=== PATIENT | male | born 1950 | race Caucasian/White ===

== ENCOUNTER → 2016-10-08 | Outpatient (CLI) | payer OTHER ==
[2015-07-14 14:45] VITALS: BP 161/90
--- NOTE | 2016-10-12 15:10 | MRI ---
History: Chronic left shoulder pain Technique: Multiplanar, multi sequence MR imaging of the left shoulder was performed without contras t. Comparison:NONE Findings: Postsurgical changes compatible with 's rotator cuff repair. There is extensive susceptibility artif act along the anterior superior aspect of the shoulder. There is a recurrent full-thickness tear of the supraspinatus and infra spinatus tendons, with approximately 3.6 cm of tendon retraction, nearly to the glenoid. Teres minor tendon appears intact. Evaluation of the subscapularis tendon is limited by motion artif act on the axial PD fat sat images however the tendon appears grossly intact. There is severe fatty atrophy of supraspinatus and infra spinatus. There is a small glenohumeral joint effusion with synovitis. There is moderate glenohumeral osteoart hrosis. Long head biceps tendon is seen within the distal aspect of the bicipital groove, however ca nnot be followed proximally along the intra-articular segment, likely secondary to bicipital tenotom y or tenodesis. Biceps anchor is not visualized. There is degenerative fraying/blunting of the super ior and posterior labrum. Anterior inferior labrum appears grossly intact. Postsurgical changes sugg est prior subacromial decompressive surgery. There is an irregularity along the posterolateral super ior aspect of the humeral head which appears slightly flattened without subjacent marrow edema. This is suggestive of a chronic Hill-Sachs deformity. Correlate with patient's history. Impression: 1. Status post rotator cuff repair, with a complete full-thickness recurrent tear supraspinatus and infra spinatus, with retraction approximate 3.6 cm nearly to the glenoid. There is fatty atrophy of supraspinatus and infra spinatus. 2. Nonvisualization of the intra-articular long head biceps tendon, likely secondary to bicipital te notomy or tenodesis. Biceps anchor is not visualized. There is degenerative fraying/blunting of the superior and posterior labrum. Anterior inferior labrum appears grossly intact. 3. Flattening of the posterolateral superior aspect of the humeral head which is suggestive of a chr onic Hill-Sachs deformity. Correlate with patient's history for previous anterior glenohumeral dislo cation. 4. Small glenohumeral joint effusion with synovitis. 5. Moderate glenohumeral osteoarthrosis. 6. Other findings as above. Reported By:
== END ==
LOC: RAD 10:33
PROVIDERS: ATTEND Internal Medicine
DX: M25.512 Pain in left shoulder (principal); Z98.890 Other specified postprocedural states
CPT/HCPCS: 73221

== ENCOUNTER 2020-10-21 12:36 | Inpatient (IN) ==
[2020-10-21 12:53] VITALS: BMI 37.1
--- NOTE | 2020-10-21 13:19 | DR.N/VMALE ---
HPI Time Seen Time Seen by Provider: 10/21/20 13:17 Primary Care Physician Primary Care Physician: Yovanny Keller Chief Complaint:: Pt c/o n/v/d since Tuesday. COVID-19 Coronavirus risk:travel/contact w/high risk person: No Has patient experienced Coronavirus symptoms: No Source History Provided: Patient Mode of Arrival Mode of Arrival: Wheelchair Timing Onset of Chief Complaint: 10/19/20 PMH PMH Past Medical History: Yes Past Medical History: Diabetes and Hypertension Past Surgical History: Yes Surgical History: Angioplasty/Stents and Ortho Surgery Family History History of Family Medical Conditions: Yes Family Medical History: Diabetes Mellitus, Coronary Artery Disease and Hypertension Social History Does patient currently use any type of tobacco product: No Have you used tobacco products in the last 12 months: No Type of Tobacco Use: None Does any household member use tobacco: No Alcohol Use: None Do you use any recreational Drugs:: No Lives With: Family Lives Where: Home Travel Risk Coronavirus risk:travel/contact w/high risk person: No Has patient experienced Coronavirus symptoms: No Infectious screening In the last 2 months have you had wt loss of >10#?: NO Have you had fever, night sweats or hemotysis?: No Have you traveled outside the country in the last 6 months?: No Isolation: Standard ROS Review of Systems Constitutional: No Symptoms Reported Eyes: No Symptoms Reported ENTM: No Symptoms Reported Respiratoy: No Symptoms Reported Cardiovascular: No Symptoms Reported Gastrointestinal/Abdominal: No Symptoms Reported Genitourinary: No Symptoms Reported Neurological: No Symptoms Reported Musculoskeletal: No Symptoms Reported Integumentary: No Symptoms Reported Hematologic/Lymphatic: No Symptoms Reported Endocrine: No Symptoms Reported Psychiatric: No Symptoms Reported All Other Systems: Reviewed and Negative PE Vital Signs Vitals: Temperature 98.9 F Pulse Rate [Left Radial] 98 Pulse Rate 96 Respiratory Rate 18 Blood Pressure [Left Arm] 123/59 Blood Pressure [Right Arm] 102/58 Blood Pressure 119/59 O2 Sat by Pulse Oximetry 94 General Limitations: No Limitations General Appearance: Alert and In No Apparent Distress Head Head Exam: Normal Inspection Eyes Eye exam: Normal Appearance ENT ENT Exam: Normal Exam Neck Neck Exam: Normal Inspection Chest Chest Inspection: Normal Inspection Respiratory Respiratory Exam: Normal Lung Sounds Bilat Respiratory Exam: Bilateral: Clear to Auscultation Cardiovascular Cardiovascular Exam: Regular Rate and Normal Rhythm Abdominal Exam Abdominal Exam: Normal Inspection, Normal Bowel Sounds and Soft Rectal Rectal Exam: Deferred Exam: Male: Deferred Extremities Extremities Exam: Normal Inspection Back Back Exam: Normal Inspection Neurologic Neurological Exam: Alert and Oriented X3 Psychiatric Psychiatric Exam: Normal Affect and Normal Mood Skin Skin Exam: Warm, Dry, Intact and Normal Color ROR Labs Reviewed Result Diagrams: 10/25/20 05:53 10/25/20 05:53 Laboratory: 10/21/20 17:16 Stool Stool Culture - Final Salmonella Species 10/21/20 17:16 Stool - Final WBC 5.1 X10^3/uL (3.6-10.0) 10/21/20 13:26 RBC 4.71 X10^6/uL (4.7-6.0) 10/21/20 13:26 Hgb 13.4 g/dL (13.5-18.0) L 10/21/20 13:26 Hct 40.9 % (42.0-54.0) L 10/21/20 13:26 MCV 86.9 fL (80.0-100.0) 10/21/20 13:26 MCH 28.6 pg (27.0-34.0) 10/21/20 13:26 MCHC 32.9 g/dL (33.0-35.0) L 10/21/20 13:26 RDW 15.2 % (11.6-16.5) 10/21/20 13:26 Plt Count 177 X10^3/uL (150.0-450.0) 10/21/20 13:26 MPV 8.1 fL (7.4-11.0) 10/21/20 13:26 Neut % (Auto) 72.3 % (42.0-75.0) 10/21/20 13:26 Lymph % (Auto) 19.1 % (21.0-51.0) L 10/21/20 13:26 [place] % (Auto) 8.4 % (0.0-13.0) 10/21/20 13:26 Eos % (Auto) 0.0 % (0.9-2.9) L 10/21/20 13:26 Baso % (Auto) 0.2 % (0.2-1.0) 10/21/20 13:26 Neut # (Auto) 3.7 x10^3/uL (2.2-4.8) 10/21/20 13:26 Lymph # (Auto) 1.0 X10^3/uL (1.3-2.9) L 10/21/20 13:26 [place] # (Auto) 0.4 x10^3/uL (0.3-0.8) 10/21/20 13:26 Eos # (Auto) 0.0 x10^3/uL (0.0-0.2) 10/21/20 13:26 Baso # (Auto) 0.0 X10^3/uL (0.0-0.1) 10/21/20 13:26 Absolute Nucleated RBC 0.1 /100WBC 10/21/20 13:26 Sodium 134 mmol/L (136-145) L 10/21/20 13:26 Corrected Sodium 136 mmol/L (136-145) 10/21/20 13:26 Potassium 3.4 mmol/L (3.5-5.1) L 10/21/20 13:26 Chloride 95 mmol/L (98-107) L 10/21/20 13:26 Carbon Dioxide 24.5 mmol/L (21-32) 10/21/20 13:26 BUN 66 mg/dL (7-18) H 10/21/20 13:26 Creatinine 5.95 mg/dL (0.70-1.30) H 10/21/20 13:26 Est GFR (MDRD) Af Amer 12 (>60) L 10/21/20 13:26 Est GFR (MDRD) Non-Af 10 (>60) L 10/21/20 13:26 Glucose 177 mg/dL (65-99) H 10/21/20 13:26 Calcium 8.8 mg/dL (8.5-10.1) 10/21/20 13:26 Corrected Calcium 9.4 mg/dL (8.5-10.1) 10/21/20 13:26 Total Bilirubin 1.20 mg/dL (0.2-1.0) H 10/21/20 13:26 AST 120 Units/L (15-37) H 10/21/20 13:26 ALT 70 Units/L (12-78) 10/21/20 13:26 Alkaline Phosphatase 48 Units/L (46-116) 10/21/20 13:26 Total Protein 8.0 g/dL (6.4-8.2) 10/21/20 13:26 Albumin 3.2 g/dL (3.4-5.0) L 10/21/20 13:26 Globulin 4.8 g/dL (2.5-4.5) H 10/21/20 13:26 Albumin/Globulin Ratio 0.7 Ratio (1.1-2.1) L 10/21/20 13:26 Amylase 49 Units/L (25-115) 10/21/20 13:26 Lipase 74 Units/L (73-393) 10/21/20 13:26 Specimen Type Random urine 10/21/20 17:21 Urine Color Dark yellow (YELLOW) 10/21/20 17: Urine Appearance Hazy (CLEAR) 10/21/20 17:21 Urine pH 5.0 (5.0 - 8.0) 10/21/20 17:21 Ur Specific [place] 1.025 (1.000-1.030) 10/21/20 17:21 Urine Protein 2+ (NEGATIVE) 10/21/20 17:21 Urine Glucose (UA) 1+ (NEGATIVE) 10/21/20 17:21 Urine Ketones 1+ (NEGATIVE) 10/21/20 17:21 Urine Occult Blood 4+ (NEGATIVE) 10/21/20 17:21 Urine Nitrite Negative (NEGATIVE) 10/21/20 17:21 Urine Bilirubin 1+ (NEGATIVE) 10/21/20 17:21 Urine Urobilinogen Normal (NORMAL) 10/21/20 17:21 Ur Leukocyte Esterase Negative (NEGATIVE) 10/21/20 17:21 Urine RBC 5-10 /HPF (0-3) A 10/21/20 17:21 Urine WBC 0-2 /HPF (0-5) 10/21/20 17:21 Ur Squamous Epith Cells Moderate /HPF (NEGATIVE) 10/21/20 17:21 Urine Bacteria 1+ /HPF (NEGATIVE) 10/21/20 17:21 Coarse Granular Casts Moderate /HPF (NEGATIVE) 10/21/20 17:21 Ur Culture Indicated? No/not indicated 10/21/20 17:21 Stool Description 200g green liquid 10/21/20 17:16 Stool Description 200g green liquid 10/21/20 17:16 Stl Occult Blood (IFOB) Positive (NEGATIVE) A 10/21/20 17:16 Stool for White Cells Positive (NEGATIVE) A 10/21/20 17:16 Stl C. diff Tox B Gene Negative (NEGATIVE) 10/21/20 17:16 Stl C. diff [id number] Presumptive negative (NEGATIVE) 10/21/20 17:16 Stool H. pylori Ag Positive (NEGATIVE) A 10/21/20 17:16 Cryptosporid parvum Ag Negative (NEGATIVE) 10/21/20 17:16 Giardia lamblia Ag Negative (NEGATIVE) 10/21/20 17:16 SARS CoV-2 RNA Rapid ZHENG Negative (NEGATIVE) 10/21/20 18:15 EKG [place]: Normal Rhythm: NSR Block: None Hypertrophy: None ST: Normal Opioid Opioid Risk Tool Age (Juan David box if 16-45): No History of Preadolescent Sexual Abuse: No Total: 0 Total Score Risk Category: Low Risk Copyright: [facility] predicting aberrant behaviors Diagnosis Discharge Problem: Acute dehydration, Acute renal insufficiency, H. pylori infection, Campylob acter gastroenteritis Abdominal pain Qualifiers: Abdominal location: generalized Qualified Code(s): R10.84 - Generalized abdominal pain Instructions Forms: Precautions for COVID19 Patient Portal Social Distancing
[2020-10-21] MEDS ORDERED: NS 1000 ML 1,000 ML IV ONE ×2 (13:24→16:37)
[2020-10-21 13:32] LABS: BASOPHILS % (AUTO) 0.2 % (0.2-1.0); HEMATOCRIT 40.9 % (42.0-54.0); HEMOGLOBIN 13.4 g/dL (13.5-18.0); LYMPHOCYTES % (AUTO) 19.1 % (21.0-51.0); MEAN CORPUSCULAR HEMOGLOBIN 28.6 pg (27.0-34.0); MEAN CORPUSCULAR HGB CONC 32.9 g/dL (33.0-35.0); MEAN CORPUSCULAR VOLUME 86.9 fL (80.0-100.0); MEAN PLATELET VOLUME 8.1 fL (7.4-11.0); MONOCYTES # (AUTO) 0.4 x10^3/uL (0.3-0.8); MONOCYTES % (AUTO) 8.4 % (0.0-13.0); NEUTROPHILS # (AUTO) 3.7 x10^3/uL (2.2-4.8); NEUTROPHILS % (AUTO) 72.3 % (42.0-75.0); PLATELET COUNT 177 X10^3/uL (150.0-450.0); RED BLOOD COUNT 4.71 X10^6/uL (4.7-6.0); RED CELL DISTRIBUTION WIDTH 15.2 % (11.6-16.5); WHITE BLOOD COUNT 5.1 X10^3/uL (3.6-10.0)
[2020-10-21] MEDS ORDERED: NS 1000 ML 1,000 ML ONE ×2 (13:32→16:40)
[2020-10-21 14:20] LABS: ALBUMIN 3.2 g/dL (3.4-5.0); CALCIUM 8.8 mg/dL (8.5-10.1); CARBON DIOXIDE 24.5 mmol/L (21-32); COR CA(FOR HYPOALB) 9.4 mg/dL (8.5-10.1); CREATININE 5.95 mg/dL (0.70-1.30)
[2020-10-21 17:28] LABS: BILIRUBIN,URINE 1+ (NEGATIVE); BLOOD/HEMOGLOBIN,URINE 4+ (NEGATIVE); GLUCOSE, URINE 1+ (NEGATIVE); KETONES,URINE 1+ (NEGATIVE); LEUKOCYTE ESTERASE ,URINE NEGATIVE (NEGATIVE); NITRITES,URINE NEGATIVE (NEGATIVE); PROTEIN,URINE 2+ (NEGATIVE); UROBILINOGEN,URINE NORMAL (NORMAL)
[2020-10-21 17:41] LABS: APPEARANCE,URINE HAZY (CLEAR); COLOR,URINE DARK YELLOW (YELLOW)
[2020-10-21 17:42] LABS: BACTERIA,URINE 1+ /HPF (NEGATIVE); COARSE GRANULAR CASTS,URINE MODERATE /HPF (NEGATIVE); SQUAMOUS EPITHELIAL CELL,UR MODERATE /HPF (NEGATIVE)
--- NOTE | 2020-10-21 17:56 | CT ---
ABDOMEN/PELVIS W/O CONHistory: c/o n/v/d since TuesdayTechnique: CT images of the abdomen and pelvis were obtained without IV or oral contrast. Reformatted images in the coronal and sagittal planes also generated for review. Automatic exposure was utilized.Comparison: NoneFindings: Lung bases are clear of acute infiltrates. Degenerative changes throughout the spine and pelvis noted.Within the limits of a noncontrast exam, the unenhanced liver is enlarged and diffusely steatotic without gross focal lesion. The gallbladder, spleen, pancreas, adrenals and kidneys are unremarkable. No urolithiasis or obstructive uropathy.Evaluation of the GI tract is limited without oral contrast. Accounting for this, there is liquid stool throughout the distal colon, which suggests nonspecific diarrheal illness. There is no small bowel obstruction or gross bowel inflammation. The appendix is normal. The abdominal aorta is mildly calcified without aneurysm. Urinary bladder is grossly unremarkable. Small fat containing left inguinal hernia noted. Prostate is calcified but not enlarged. There is no free air, free fluid or bulky lymphadenopathy.Impression:1. Liquid stool within the distal colon suggests nonspecific diarrheal illness.2. Otherwise, no additional significant abdominal pelvic abnormality to explain patient's symptoms, within the limitations of a noncontrast exam.3. Enlarged fatty liver and additional chronic/nonacute findings as above.Electronically signed by: TR WATKINS (October 21, 2020 17:54:40)
[2020-10-21 18:18] LABS: CRYPTOSPORIDIUM PARVUM ANTIGEN NEGATIVE (NEGATIVE); GIARDIA LAMBLIA ANTIGEN NEGATIVE (NEGATIVE)
[2020-10-21] MEDS ORDERED: ZITHROMAX INJ 500 MG VIAL IV ONE (22:00)
[2020-10-21] MEDS ORDERED: ZITHROMAX INJ 500 MG VIAL 500 MG in NS 250 ML IV 250 ML IV SCH (22:00)
[2020-10-21] MEDS ORDERED: NS 250 ML IV 250 ML IV ONE (22:01)
[2020-10-21] MEDS ORDERED: NS 100 ML IV 100 ML IV ONE (22:34)
[2020-10-21] MEDS ORDERED: PROTONIX INJ 40 MG VIAL ONE (22:34)
[2020-10-21] MEDS: PROTONIX INJ 40 MG VIAL 80 MG in NS 100 ML IV 80 ML IV SCH (22:47)
[2020-10-22] MEDS ORDERED: NS 1000 ML 1,000 ML ONE (02:56)
[2020-10-22] MEDS ORDERED: NS 100 ML IV 100 ML IV ONE (03:54)
[2020-10-22] MEDS ORDERED: PROTONIX INJ 40 MG VIAL ONE (03:54)
[2020-10-22] MEDS: PROTONIX INJ 40 MG VIAL 80 MG in NS 100 ML IV 80 ML IV SCH ×4 (03:58→14:30)
[2020-10-22] MEDS ORDERED: NS 1000 ML 1,000 ML IV SCH ×2 (04:00→04:42)
[2020-10-22] MEDS ORDERED: BENTYL I.M. INJ 10 MG IM ONE (05:25)
[2020-10-22] MEDS: BENTYL I.M. INJ 10 MG IM SCH ×3 (05:28→21:00)
[2020-10-22 06:28] LABS: BASOPHILS % (AUTO) 0.3 % (0.2-1.0); HEMATOCRIT 35.5 % (42.0-54.0); HEMOGLOBIN 11.8 g/dL (13.5-18.0); LYMPHOCYTES # (AUTO) 0.6 X10^3/uL (1.3-2.9); LYMPHOCYTES % (AUTO) 17.8 % (21.0-51.0); MEAN CORPUSCULAR HEMOGLOBIN 28.7 pg (27.0-34.0); MEAN CORPUSCULAR HGB CONC 33.1 g/dL (33.0-35.0); MEAN CORPUSCULAR VOLUME 86.5 fL (80.0-100.0); MEAN PLATELET VOLUME 8.5 fL (7.4-11.0); MONOCYTES # (AUTO) 0.3 x10^3/uL (0.3-0.8); MONOCYTES % (AUTO) 9.3 % (0.0-13.0); NEUTROPHILS # (AUTO) 2.5 x10^3/uL (2.2-4.8); NEUTROPHILS % (AUTO) 72.6 % (42.0-75.0); PLATELET COUNT 147 X10^3/uL (150.0-450.0); RED CELL DISTRIBUTION WIDTH 15.1 % (11.6-16.5); WHITE BLOOD COUNT 3.4 X10^3/uL (3.6-10.0)
[2020-10-22 06:38] LABS: ALBUMIN 2.6 g/dL (3.4-5.0); CALCIUM 8.2 mg/dL (8.5-10.1); CARBON DIOXIDE 25.1 mmol/L (21-32); COR CA(FOR HYPOALB) 9.3 mg/dL (8.5-10.1); CREATININE 4.72 mg/dL (0.70-1.30); TOTAL PROTEIN 6.9 g/dL (6.4-8.2)
[2020-10-22] MEDS ORDERED: CIPRO TAB 500 MG PO ONE (09:46)
[2020-10-22] MEDS: CIPRO TAB 500 MG PO SCH (09:48)
[2020-10-22] MEDS: NS 1000 ML 1,000 ML with SODIUM BICARBONATE 8.4% INJ ADULT 50 ML IV SCH ×4 (11:45→20:58)
[2020-10-22] MEDS: LOMOTIL PO SCH ×2 (11:57→20:58)
[2020-10-22] MEDS: PEPCID 20 MG IV PREMIX* 20 MG/50 ML BAG IV SCH (11:57)
--- NOTE | 2020-10-22 13:52 | DR.H&P ---
H&P - History & Physical for Day of: H&P Date: 10/21/20 - Chief Complaint Chief Complaint: NAUSEA, VOMITING, DIARRHEA - History of Present Illness History of Present Illness: IS A 70 YEAR OLD PATIENT OF OURS. HE PRESENTED TO THE ER WITH COMPLAINTS OF NAUSEA, VOMITING, AND DIARRHEA X 3 DAYS. HE ALSO ADMITS TO ABDOMINAL PAIN. PAIN IS DESCRIBED CRAMPING AND IS RATED A 8/10. HE REPORTS HAVING AT LEAST 15 EPISODES OF DIARRHEA IN THE PAST 24 HOURS. HIS PMH INCLUDES CAD, GERD, DIABETES II, CARDIAC STENTS, AND BILATERAL SHOULDER AND KNEE REPLACEMENT. ON ARRIVAL TO THE ER, VITALS WERE 99.6-96-20-95%-119/59. LABS WERE OBTAINED. ABNORMAL LAB VALUES INCLUDE THE FOLLOWING: HGB 13.4, HCT 40.9, SODIUM 134, POTASSIUM 3.4, CHLORIDE 95, BUN 66, CREATININE 5.95, GLUCOSE 177, TOTAL BILI 1.20, AST 120, ALBUMIN 3.2, GLOBULIN 4.8. STOOL STUDIES ARE POSITIVE FOR OCCULT BLOOD, WHITE CELL, CAMPYLOBACTER, AND H.PYLORI. URINALYSIS OBTAINED AND REVEALED: WBC 0-2, RBC 5-10, BACTERIA 1+, BILIRUBIN 1+, OCCULT BLOOD 4+, PROTEIN 2+. A STOOL CULTURE WAS SET UP. AN ABDOMEN/PELVIS CT WAS OBTAINED AND REVEALED: Lung bases are clear of acute infiltrates. Degenerative changes throughout the spine and pelvis noted. Within the limits of a noncontrast exam, the unenhanced liver is enlarged and diffusely steatotic without gross focal lesion. The gallbladder, spleen, pancreas, adrenals and kidneys are unremarkable. No urolithiasis or obstructive uropathy. Evaluation of the GI tract is limited without oral contrast. Accounting for this, there is liquid stool throughout the distal colon, which suggests nonspecific diarrheal illness. There is no small bowel obstruction or gross bowel inflammation. The appendix is normal. The abdominal aorta is mildly calcified without aneurysm. Urinary bladder is grossly unremarkable. Small fat containing left inguinal hernia noted. Prostate is calcified but not enlarged. There is no free air, free fluid or bulky lymphadenopathy. WHILE IN THE ER, PATIENT HAD MULTIPLE EPISODES OF DIARRHEA. A RECTAL TUBE WAS PLACED. HE WAS GIVEN A NORMAL SALINE BOLUS, ZITHROMAX 500MG IV X 1 DOSE. HE WAS ADMITTED TO THE HOSPITAL FOR FURTHER EVALUATION OF ACUTE RENAL FAILURE, CAMPYLOBACTER INFECTION, H-PYLORI, AND DEHYDRATION. HE WAS STARTED ON NORMAL SALINE WITH 1 AMP BICARB IN EACH LITER AT 150 ML/HR, CIPRO 500MG PO DAILY, PROTONIX DRIP AT 10 ML/HR, PEPCID 20MG IV Q48H, ZOFRAN 4MG IV Q6H PRN, DILAUDID 1MG IV Q6H PRN, BENTYL 10MG IM Q8H, AND LOMOTIL 1TABLET PO BID. WE CHOSE ORAL ANTIBIOTICS DUE TO STOMACH INFECTION AND CLOSER ABSORPTION. OTHERWISE, WE PLAN TO FOLLOW UP WITH AM LABS AND CONTINUE TO MONITOR. TIME SPENT ON CLINICAL ASSESSMENT, REVIEWING LABS AND IMAGING, DECISION MAKING, AND DOCUMENTATION GREATER THAN 75 MINUTES. - Past Medical History Past Medical History: Diabetes, GERD, Hypertension - Past Surgical History Surgical History: Angioplasty/Stents, Ortho Surgery - Family History Family Medical History: Diabetes Mellitus, Hypertension - Social History Does patient currently use any type of tobacco product: No Have you used tobacco products in the last 12 months: No Type of Tobacco Use: None Does any household member use tobacco: No Alcohol Use: None Drug Use: None - Medications Home Medications: Sulfa (Sulfonamide Antibiotics) [SULFA] Allergy (Verified 07/15/20 11:18) vancomycin Allergy (Verified 07/15/20 11:18) CONTINUE taking the following medications docusate sodium [Stool Softener] 100 mg PO PRN PRN 10/22/20 [History] eszopiclone 3 mg PO HS PRN 10/22/20 [History] ferrous sulfate 325 mg PO DAILY 10/22/20 [History] folic acid 1 mg PO BID 10/22/20 [History] gabapentin [Neurontin] 300 mg PO BID 10/22/20 [History] meclizine 25 mg PO BID PRN 10/22/20 [History] metoprolol succinate 25 mg PO DAILY 10/22/20 [History] montelukast [Singulair] 10 mg PO DAILY 10/22/20 [History] terazosin 2 mg PO HS 10/22/20 [History] - Review of Systems Constitutional: See HPI, Fever, Weakness, Malaise Eyes: No Symptoms Reported ENT: No Symptoms Reported Respiratory: No Symptoms Reported Cardiovascular: No Symptoms Reported Gastrointestinal: See HPI, Nausea, Vomiting, Abdominal Pain, Diarrhea Genitourinary: No Symptoms Reported Musculoskeletal: No Symptoms Reported Skin: No Symptoms Reported Neurological: Weakness - Physical Exam Vital Signs: Temperature 97.9 F Pulse Rate [Left Radial] 83 Pulse Rate 96 Respiratory Rate 18 Blood Pressure [Left Arm] 157/73 Blood Pressure [Right Arm] 102/58 Blood Pressure 119/59 O2 Sat by Pulse Oximetry 93 Oriented: Normal Eyes: Normal Ear: Normal Nose: Normal Throat: Normal Respiratory: Diminished Throughout Cardiovascular: Normal : Normal Auscultation: Bowel Sounds: Increased Palpation: Normal Tenderness: Diffuse, Moderate. negative: Rebound, Guarding, Rigidity Skin: Decreased Turgur Musculoskeletal: Normal Psychiatric: Normal Mood Description: Calm Affect: Normal Speech Pattern: Clear - Assessment/Plan (1) Acute renal failure Qualifiers: Acute renal failure type: unspecified Qualified Code(s): N17.9 - Acute kidney failure, unspecified Status: Acute Plan: NORMAL SALINE WITH 1 AMP BICARB IN EACH LITER AT 150 ML/HR, CIPRO 500MG PO DAILY, PROTONIX DRIP AT 10 ML/HR, PEPCID 20MG IV Q48H, ZOFRAN 4MG IV Q6H PRN, DILAUDID 1MG IV Q6H PRN, BENTYL 10MG IM Q8H, AND LOMOTIL 1TABLET PO BID. (2) Campylobacter gastroenteritis Status: Acute (3) H. pylori infection Status: Acute (4) Acute dehydration Status: Acute - Allergies Allergies/Adverse Reactions: Allergies Allergy/AdvReac Type Severity Reaction Status Date / Time Sulfa (Sulfonamide Allergy Verified 07/15/20 11:18 Antibiotics) [SULFA] vancomycin Allergy Verified 07/15/20 11:18
[2020-10-22] MEDS: ZOFRAN INJ 4 MG VIAL IVP PRN (14:30)
[2020-10-22] MEDS: PHENERGAN INJ 25 MG IM PRN (17:47)
[2020-10-22] MEDS: DILAUDID INJ IVP PRN (20:59)
[2020-10-23] MEDS: PROTONIX INJ 40 MG VIAL 80 MG in NS 100 ML IV 80 ML IV SCH ×3 (04:05→20:59)
[2020-10-23] MEDS: BENTYL I.M. INJ 10 MG IM SCH ×3 (04:06→20:57)
[2020-10-23] MEDS: NS 1000 ML 1,000 ML with SODIUM BICARBONATE 8.4% INJ ADULT 50 ML IV SCH ×6 (05:09→17:30)
[2020-10-23] MEDS: DILAUDID INJ IVP PRN ×3 (05:09→17:38)
[2020-10-23 06:29] LABS: BASOPHILS % (AUTO) 0.2 % (0.2-1.0); EOSINOPHILS % (AUTO) 0.2 % (0.9-2.9); HEMATOCRIT 35.3 % (42.0-54.0); LYMPHOCYTES # (AUTO) 0.6 X10^3/uL (1.3-2.9); LYMPHOCYTES % (AUTO) 21.4 % (21.0-51.0); MEAN CORPUSCULAR HEMOGLOBIN 29.2 pg (27.0-34.0); MEAN CORPUSCULAR VOLUME 85.6 fL (80.0-100.0); MEAN PLATELET VOLUME 8.4 fL (7.4-11.0); MONOCYTES # (AUTO) 0.3 x10^3/uL (0.3-0.8); MONOCYTES % (AUTO) 10.6 % (0.0-13.0); NEUTROPHILS # (AUTO) 1.8 x10^3/uL (2.2-4.8); NEUTROPHILS % (AUTO) 67.6 % (42.0-75.0); PLATELET COUNT 141 X10^3/uL (150.0-450.0); RED BLOOD COUNT 4.13 X10^6/uL (4.7-6.0); RED CELL DISTRIBUTION WIDTH 14.9 % (11.6-16.5); WHITE BLOOD COUNT 2.6 X10^3/uL (3.6-10.0)
[2020-10-23 06:32] LABS: ALBUMIN 2.2 g/dL (3.4-5.0); CALCIUM 8.2 mg/dL (8.5-10.1); CARBON DIOXIDE 26.6 mmol/L (21-32); COR CA(FOR HYPOALB) 9.6 mg/dL (8.5-10.1); CREATININE 2.68 mg/dL (0.70-1.30); TOTAL PROTEIN 6.3 g/dL (6.4-8.2)
[2020-10-23] MEDS: CIPRO TAB 500 MG PO SCH (09:44)
[2020-10-23] MEDS: LOMOTIL PO SCH ×2 (09:45→20:57)
[2020-10-23] MEDS: ZOFRAN INJ 4 MG VIAL IVP PRN ×2 (10:26→17:37)
[2020-10-23] MEDS ORDERED: K-DUR TAB 20 MEQ PO ONE (10:33)
[2020-10-23] MEDS: PHENERGAN INJ 25 MG IM PRN (15:14)
[2020-10-23] MEDS ORDERED: BENTYL I.M. INJ 10 MG IM ONE (20:43)
[2020-10-24] MEDS: NS 1000 ML 1,000 ML with SODIUM BICARBONATE 8.4% INJ ADULT 50 ML IV SCH ×6 (02:30→15:39)
[2020-10-24] MEDS ORDERED: BENTYL I.M. INJ 10 MG IM ONE (05:36)
[2020-10-24 05:58] LABS: BASOPHILS % (AUTO) 0.6 % (0.2-1.0); EOSINOPHILS # (AUTO) 0.1 x10^3/uL (0.0-0.2); HEMATOCRIT 33.5 % (42.0-54.0); HEMOGLOBIN 11.3 g/dL (13.5-18.0); LYMPHOCYTES # (AUTO) 0.6 X10^3/uL (1.3-2.9); LYMPHOCYTES % (AUTO) 27.3 % (21.0-51.0); MEAN CORPUSCULAR HEMOGLOBIN 28.6 pg (27.0-34.0); MEAN CORPUSCULAR HGB CONC 33.8 g/dL (33.0-35.0); MEAN CORPUSCULAR VOLUME 84.6 fL (80.0-100.0); MEAN PLATELET VOLUME 8.3 fL (7.4-11.0); MONOCYTES # (AUTO) 0.2 x10^3/uL (0.3-0.8); MONOCYTES % (AUTO) 10.3 % (0.0-13.0); NEUTROPHILS # (AUTO) 1.3 x10^3/uL (2.2-4.8); NEUTROPHILS % (AUTO) 58.8 % (42.0-75.0); PLATELET COUNT 152 X10^3/uL (150.0-450.0); RED BLOOD COUNT 3.96 X10^6/uL (4.7-6.0); RED CELL DISTRIBUTION WIDTH 14.9 % (11.6-16.5); WHITE BLOOD COUNT 2.3 X10^3/uL (3.6-10.0)
[2020-10-24] MEDS: BENTYL I.M. INJ 10 MG IM SCH ×3 (06:00→21:17)
[2020-10-24] MEDS: ZOFRAN INJ 4 MG VIAL IVP PRN ×3 (06:01→15:40)
[2020-10-24 06:10] LABS: ALBUMIN 2.2 g/dL (3.4-5.0); CALCIUM 8.4 mg/dL (8.5-10.1); CARBON DIOXIDE 28.5 mmol/L (21-32); COR CA(FOR HYPOALB) 9.8 mg/dL (8.5-10.1); CREATININE 2.05 mg/dL (0.70-1.30); MAGNESIUM 1.7 mg/dL (1.7-2.9); TOTAL PROTEIN 6.1 g/dL (6.4-8.2)
[2020-10-24 06:39] LABS: BAND NEUTROPHILS % 11 % (0-10); PLATELET MORPHOLOGY COMMENT NORMAL (NORMAL)
[2020-10-24] MEDS: CIPRO TAB 500 MG PO SCH (09:27)
[2020-10-24] MEDS ORDERED: KLOR-CON PO NR (11:45)
--- NOTE | 2020-10-24 11:45 | PCM.PROG ---
Progress Note - Progress Note for Day of Date of Exam: 10/23/20 - Subjective Subjective: IS BEING TREATED FOR ACUTE RENAL FAILURE, DEHYDRATION, CAMPYLOBACTER GASTROENTERITIS, AND H-PYLORI. TODAY, HE IS ALERT AND ORIENTED, LYING IN BED ON MORNING ROUNDS. HE CONTINUES WITH COMPLAINTS OF ABDOMINAL PAIN AND NAUSEA. HE DOES REPORT SLIGHT IMPROVEMENT IN SYMPTOMS SINCE ONE DAY PRIOR. ON EXAMINATION, HEART IS REGULAR IN RATE AND RHYTHM. BILATERAL LUNGS ARE NOTED WITH DIMINISHED LUNG SOUNDS THROUGHOUT. ABDOMEN IS ROUND, SOFT, AND NOTED WITH MILD, DIFFUSE TENDERNESS. HYPERACTIVE BOWEL SOUNDS NOTED. THERE IS A RECTAL TUBE IN PLACE. HIS VITALS THIS MORNING ARE: 98.2-88-20-97%-153/84. LABS WERE OBTAINED. ABNORMAL LAB VALUES INCLUDE THE FOLLOWING: WBC 2.6, RBC 4.13, HGB 12.0, HCT 35.3, PLT COUNT 114, POTASSIUM 3.0, BUN 50, CREATININE 2.68, GLUCOSE 170, CALCIUM 8.2, AST 92, ALK PHOS 43, BNP 744, TOTAL PROTEIN 6.3, ALBUMIN 2.2. STOOL CULTURE IS PENDING. HE IS CURRENTLY RECEIVING NORMAL SALINE WITH 1 AMP BICARB IN EACH LITER AT 150 ML/HR, CIPRO 500MG PO DAILY, PROTONIX DRIP AT 10 ML/HR, PEPCID 20MG IV Q48H, ZOFRAN 4MG IV Q6H PRN, DILAUDID 1MG IV Q6H PRN, BENTYL 10MG IM Q8H, AND LOMOTIL 1TABLET PO BID. HIS HOME MEDICATIONS WERE RESUMED. TODAY, WE WILL DECREASE IV FLUIDS TO 75 ML/HR AND ADMINISTER K-DUR 20MG PO X 1 DOSE. OTHERWISE, WE WILL CONTINUE WITH CURRENT PLAN OF CARE TODAY. WE PLAN TO FOLLOW UP WITH AM LABS AND CONTINUE TO MONITOR. - Past Medical Family Social History Past Med/Fam/Surg Hx: No changes since H&P Allergies: Allergies Sulfa (Sulfonamide Antibiotics) [SULFA] Allergy (Verified 07/15/20 11:18) vancomycin Allergy (Verified 07/15/20 11:18) - Review of Systems ROS: No change since H&P - Vital Signs and I&O's Vital Signs: Temperature 98.2 F Pulse Rate [Left Radial] 88 Pulse Rate 96 Respiratory Rate 20 Blood Pressure [Left Arm] 153/84 Blood Pressure [Right Arm] 102/58 Blood Pressure 119/59 O2 Sat by Pulse Oximetry 97 Intake and Output: Intake & Output 10/21/20 10/22/20 10/23/20 10/24/20 11:59 11:59 11:59 11:59 Intake Total 2416 / 2416 580 / 580 6548 / 6548 Output Total 600 / 600 1100 / 1100 1250 / 1250 Balance 1816 / 1816 -520 / -520 5298 / 5298 - Physical Exam Oriented: Normal Eyes: Normal Ear: Normal Nose: Normal Throat: Normal Respiratory: Generalized, Diminished Cardiovascular: Normal : Normal Auscultation: Bowel Sounds: Increased Palpation: Normal Tenderness: Diffuse, Moderate. negative: Rebound, Guarding, Rigidity Skin: Decreased Turgur Musculoskeletal: Normal Psychiatric: Normal Mood Description: Calm Affect: Normal Speech Pattern: Clear, Appropriate - Laboratory and Diagnostics Result Diagrams: 10/24/20 05:15 10/24/20 05:15 Labs: 10/21/20 17:16 Stool Stool Culture - Final Salmonella Species 10/21/20 17:16 Stool - Final Laboratory WBC 2.3 X10^3/uL (3.6-10.0) L 10/24/20 05:15 RBC 3.96 X10^6/uL (4.7-6.0) L 10/24/20 05:15 Hgb 11.3 g/dL (13.5-18.0) L 10/24/20 05:15 Hct 33.5 % (42.0-54.0) L 10/24/20 05:15 MCV 84.6 fL (80.0-100.0) 10/24/20 05:15 MCH 28.6 pg (27.0-34.0) 10/24/20 05:15 MCHC 33.8 g/dL (33.0-35.0) 10/24/20 05:15 RDW 14.9 % (11.6-16.5) 10/24/20 05:15 Plt Count 152 X10^3/uL (150.0-450.0) 10/24/20 05:15 Plt Count Comment Adequate (ADEQUATE) 10/24/20 05:15 MPV 8.3 fL (7.4-11.0) 10/24/20 05:15 Neut % (Auto) 58.8 % (42.0-75.0) 10/24/20 05:15 Lymph % (Auto) 27.3 % (21.0-51.0) 10/24/20 05:15 [place] % (Auto) 10.3 % (0.0-13.0) 10/24/20 05:15 Eos % (Auto) 3.0 % (0.9-2.9) H 10/24/20 05:15 Baso % (Auto) 0.6 % (0.2-1.0) 10/24/20 05:15 Neut # (Auto) 1.3 x10^3/uL (2.2-4.8) L 10/24/20 05:15 Lymph # (Auto) 0.6 X10^3/uL (1.3-2.9) L 10/24/20 05:15 [place] # (Auto) 0.2 x10^3/uL (0.3-0.8) L 10/24/20 05:15 Eos # (Auto) 0.1 x10^3/uL (0.0-0.2) 10/24/20 05:15 Baso # (Auto) 0.0 X10^3/uL (0.0-0.1) 10/24/20 05:15 Absolute Nucleated RBC 0.1 /100WBC 10/24/20 05:15 Total Counted 100 10/24/20 05:15 Neutrophils % (Manual) 53 % (39-76) 10/24/20 05:15 Band Neutrophils % 11 % (0-10) H 10/24/20 05:15 Lymphocytes % (Manual) 20 % (13-43) 10/24/20 05:15 Monocytes % (Manual) 10 % (4-9) H 10/24/20 05:15 Atypical Lymphocytes 5 10/24/20 05:15 Plt Morphology Comment Normal (NORMAL) 10/24/20 05:15 RBC Morphology Normal (NORMAL) 10/24/20 05:15 Sodium 144 mmol/L (136-145) 10/24/20 05:15 Corrected Sodium 145 mmol/L (136-145) 10/24/20 05:15 Potassium 2.8 mmol/L (3.5-5.1) L* 10/24/20 05:15 Chloride 108 mmol/L (98-107) H 10/24/20 05:15 Carbon Dioxide 28.5 mmol/L (21-32) 10/24/20 05:15 BUN 36 mg/dL (7-18) H 10/24/20 05:15 Creatinine 2.05 mg/dL (0.70-1.30) H 10/24/20 05:15 Est GFR (MDRD) Af Amer 42 (>60) L 10/24/20 05:15 Est GFR (MDRD) Non-Af 34 (>60) L 10/24/20 05:15 Glucose 131 mg/dL (65-99) H 10/24/20 05:15 Calcium 8.4 mg/dL (8.5-10.1) L 10/24/20 05:15 Corrected Calcium 9.8 mg/dL (8.5-10.1) 10/24/20 05:15 Magnesium 1.7 mg/dL (1.7-2.9) 10/24/20 05:15 Total Bilirubin 0.70 mg/dL (0.2-1.0) 10/24/20 05:15 AST 71 Units/L (15-37) H 10/24/20 05:15 ALT 59 Units/L (12-78) 10/24/20 05:15 Alkaline Phosphatase 47 Units/L (46-116) 10/24/20 05:15 B-Natriuretic Peptide 826 pg/mL (0-79) H* 10/24/20 05:15 Total Protein 6.1 g/dL (6.4-8.2) L 10/24/20 05:15 Albumin 2.2 g/dL (3.4-5.0) L 10/24/20 05:15 Globulin 3.9 g/dL (2.5-4.5) 10/24/20 05:15 Albumin/Globulin Ratio 0.6 Ratio (1.1-2.1) L 10/24/20 05:15 Amylase 44 Units/L (25-115) 10/22/20 05:15 Lipase 77 Units/L (73-393) 10/22/20 05:15 Specimen Type Random urine 10/21/20 17:21 Urine Color Dark yellow (YELLOW) 10/21/20 17:21 Urine Appearance Hazy (CLEAR) 10/21/20 17:21 Urine pH 5.0 (5.0 - 8.0) 10/21/20 17:21 Ur Specific [place] 1.025 (1.000-1.030) 10/21/20 17:21 Urine Protein 2+ (NEGATIVE) 10/21/20 17:21 Urine Glucose (UA) 1+ (NEGATIVE) 10/21/20 17:21 Urine Ketones 1+ (NEGATIVE) 10/21/20 17:21 Urine Occult Blood 4+ (NEGATIVE) 10/21/20 17:21 Urine Nitrite Negative (NEGATIVE) 10/21/20 17:21 Urine Bilirubin 1+ (NEGATIVE) 10/21/20 17:21 Urine Urobilinogen Normal (NORMAL) 10/21/20 17:21 Ur Leukocyte Esterase Negative (NEGATIVE) 10/21/20 17:21 Urine RBC 5-10 /HPF (0-3) A 10/21/20 17:21 Urine WBC 0-2 /HPF (0-5) 10/21/20 17:21 Ur Squamous Epith Cells Moderate /HPF (NEGATIVE) 10/21/20 17:21 Urine Bacteria 1+ /HPF (NEGATIVE) 10/21/20 17:21 Coarse Granular Casts Moderate /HPF (NEGATIVE) 10/21/20 17:21 Ur Culture Indicated? No/not indicated 10/21/20 17:21 Stool Description 200g green liquid 10/21/20 17:16 Stool Description 200g green liquid 10/21/20 17:16 Stl Occult Blood (IFOB) Positive (NEGATIVE) A 10/21/20 17:16 Stool for White Cells Positive (NEGATIVE) A 10/21/20 17:16 Stl C. diff Tox B Gene Negative (NEGATIVE) 10/21/20 17:16 Stl C. diff [id number] Presumptive negative (NEGATIVE) 10/21/20 17:16 Stool H. pylori Ag Positive (NEGATIVE) A 10/21/20 17:16 Cryptosporid parvum Ag Negative (NEGATIVE) 10/21/20 17:16 Giardia lamblia Ag Negative (NEGATIVE) 10/21/20 17:16 SARS CoV-2 RNA Rapid ZHENG Negative (NEGATIVE) 10/21/20 18:15 - Plan (1) Acute renal failure Status: Acute Qualifiers: Acute renal failure type: unspecified Qualified Code(s): N17.9 - Acute kidney failure, unspecified Plan: NORMAL SALINE WITH 1 AMP BICARB IN EACH LITER AT 75 ML/HR, CIPRO 500MG PO DAILY, PROTONIX DRIP AT 10 ML/HR, PEPCID 20MG IV Q48H, ZOFRAN 4MG IV Q6H PRN, DILAUDID 1MG IV Q6H PRN, BENTYL 10MG IM Q8H, AND LOMOTIL 1TABLET PO BID. (2) Campylobacter gastroenteritis Status: Acute (3) H. pylori infection Status: Acute (4) Acute dehydration Status: Acute
[2020-10-24] MEDS: PEPCID 20 MG IV PREMIX* 20 MG/50 ML BAG IV SCH (12:30)
[2020-10-24] MEDS: PROTONIX INJ 40 MG VIAL 80 MG in NS 100 ML IV 80 ML IV SCH ×2 (15:28→18:36)
[2020-10-24] MEDS ORDERED: KLOR-CON ONE (15:31)
[2020-10-25] MEDS: NS 1000 ML 1,000 ML with SODIUM BICARBONATE 8.4% INJ ADULT 50 ML IV SCH ×4 (00:25→11:47)
[2020-10-25] MEDS: DILAUDID INJ IVP PRN ×4 (00:30→22:20)
[2020-10-25] MEDS: BENTYL I.M. INJ 10 MG IM SCH ×3 (04:33→20:45)
[2020-10-25] MEDS: PROTONIX INJ 40 MG VIAL 80 MG in NS 100 ML IV 80 ML IV SCH ×4 (04:38→23:13)
[2020-10-25 06:36] LABS: BASOPHILS % (AUTO) 0.5 % (0.2-1.0); EOSINOPHILS # (AUTO) 0.1 x10^3/uL (0.0-0.2); EOSINOPHILS % (AUTO) 3.4 % (0.9-2.9); HEMATOCRIT 32.3 % (42.0-54.0); HEMOGLOBIN 10.9 g/dL (13.5-18.0); LYMPHOCYTES # (AUTO) 1.2 X10^3/uL (1.3-2.9); LYMPHOCYTES % (AUTO) 32.2 % (21.0-51.0); MEAN CORPUSCULAR HEMOGLOBIN 28.7 pg (27.0-34.0); MEAN CORPUSCULAR HGB CONC 33.8 g/dL (33.0-35.0); MEAN CORPUSCULAR VOLUME 84.9 fL (80.0-100.0); MEAN PLATELET VOLUME 7.7 fL (7.4-11.0); MONOCYTES # (AUTO) 0.3 x10^3/uL (0.3-0.8); NEUTROPHILS % (AUTO) 54.9 % (42.0-75.0); PLATELET COUNT 158 X10^3/uL (150.0-450.0); RED BLOOD COUNT 3.81 X10^6/uL (4.7-6.0); RED CELL DISTRIBUTION WIDTH 14.9 % (11.6-16.5); WHITE BLOOD COUNT 3.7 X10^3/uL (3.6-10.0)
[2020-10-25 06:45] LABS: ALBUMIN 2.1 g/dL (3.4-5.0); CALCIUM 8.6 mg/dL (8.5-10.1); CARBON DIOXIDE 31.1 mmol/L (21-32); COR CA(FOR HYPOALB) 10.1 mg/dL (8.5-10.1); CREATININE 1.71 mg/dL (0.70-1.30); MAGNESIUM 1.6 mg/dL (1.7-2.9); TOTAL PROTEIN 5.8 g/dL (6.4-8.2)
[2020-10-25] MEDS: CIPRO TAB 500 MG PO SCH (10:04)
[2020-10-25] MEDS ORDERED: LR 1000 ML IV 1,000 ML IV ONE (10:14)
[2020-10-25] MEDS: MAGNESIUM SULFATE 1 GRAM/100 mL PREMIX 4 G/400 ML BAG IV SCH ×4 (14:02→17:52)
[2020-10-25] MEDS ORDERED: NS 1/2 1000 ML IV 1,000 ML IV ONE (14:54)
[2020-10-25] MEDS ORDERED: SODIUM BICARBONATE 8.4% INJ ADULT ONE (14:54)
[2020-10-25] MEDS: NS 1/2 1000 ML IV 1,000 ML with SODIUM BICARBONATE 8.4% INJ ADULT 50 ML IV SCH ×4 (14:58→22:19)
[2020-10-25] MEDS: K-DUR TAB 20 MEQ PO SCH (20:40)
[2020-10-26] MEDS: ZOFRAN INJ 4 MG VIAL IVP PRN ×2 (00:26→08:56)
[2020-10-26] MEDS ORDERED: KLOR-CON PO PRN (02:35)
[2020-10-26] MEDS ORDERED: MICRO K EXTEN CAP 10 MEQ PO PRN (02:35)
[2020-10-26] MEDS: K-RIDER 10 MEQ/NS 100 ML 10 MEQ/100 ML BAG IV PRN ×3 (03:18→06:07)
[2020-10-26] MEDS ORDERED: SODIUM BICARBONATE 8.4% INJ ADULT ONE (03:33)
[2020-10-26] MEDS ORDERED: NS 1/2 1000 ML IV 1,000 ML IV ONE (03:33)
[2020-10-26] MEDS: BENTYL I.M. INJ 10 MG IM SCH ×3 (05:06→20:45)
[2020-10-26] MEDS: NS 1/2 1000 ML IV 1,000 ML with SODIUM BICARBONATE 8.4% INJ ADULT 50 ML IV SCH ×2 (05:06)
[2020-10-26 06:38] LABS: BASOPHILS % (AUTO) 0.5 % (0.2-1.0); EOSINOPHILS # (AUTO) 0.1 x10^3/uL (0.0-0.2); EOSINOPHILS % (AUTO) 2.6 % (0.9-2.9); HEMATOCRIT 32.6 % (42.0-54.0); LYMPHOCYTES # (AUTO) 1.3 X10^3/uL (1.3-2.9); LYMPHOCYTES % (AUTO) 28.6 % (21.0-51.0); MEAN CORPUSCULAR HEMOGLOBIN 28.6 pg (27.0-34.0); MEAN CORPUSCULAR HGB CONC 33.8 g/dL (33.0-35.0); MEAN CORPUSCULAR VOLUME 84.5 fL (80.0-100.0); MEAN PLATELET VOLUME 7.7 fL (7.4-11.0); MONOCYTES # (AUTO) 0.3 x10^3/uL (0.3-0.8); MONOCYTES % (AUTO) 6.4 % (0.0-13.0); NEUTROPHILS # (AUTO) 2.8 x10^3/uL (2.2-4.8); NEUTROPHILS % (AUTO) 61.9 % (42.0-75.0); PLATELET COUNT 171 X10^3/uL (150.0-450.0); RED BLOOD COUNT 3.86 X10^6/uL (4.7-6.0); RED CELL DISTRIBUTION WIDTH 15.1 % (11.6-16.5); WHITE BLOOD COUNT 4.5 X10^3/uL (3.6-10.0)
[2020-10-26 06:52] LABS: ALBUMIN 2.3 g/dL (3.4-5.0); CALCIUM 8.5 mg/dL (8.5-10.1); COR CA(FOR HYPOALB) 9.9 mg/dL (8.5-10.1); CREATININE 1.5 mg/dL (0.70-1.30); MAGNESIUM 1.9 mg/dL (1.7-2.9); TOTAL PROTEIN 5.9 g/dL (6.4-8.2)
[2020-10-26] MEDS: PROTONIX INJ 40 MG VIAL 80 MG in NS 100 ML IV 80 ML IV SCH ×4 (07:27→18:08)
[2020-10-26] MEDS: DILAUDID INJ IVP PRN (07:27)
[2020-10-26] MEDS: POTASSIUM CHLORIDE LIQ 20 MEQ UDC PO PRN ×2 (07:41→11:01)
[2020-10-26] MEDS: CIPRO TAB 500 MG PO SCH (08:42)
[2020-10-26] MEDS: K-DUR TAB 20 MEQ PO SCH ×4 (08:42→21:08)
[2020-10-26] MEDS: MAGNESIUM SULFATE 1 GRAM/100 mL PREMIX 1 GM/100 ML BAG IV PRN (11:01)
[2020-10-26] MEDS: MAGNESIUM SULFATE 1 GRAM/100 mL PREMIX 4 G/400 ML BAG IV SCH ×4 (11:02→14:38)
[2020-10-26] MEDS: COREG TAB 25 MG PO SCH ×2 (11:02→20:44)
[2020-10-26] MEDS: VSL#3 PO SCH (11:03)
[2020-10-26] MEDS: PEPCID 20 MG IV PREMIX* 20 MG/50 ML BAG IV SCH (11:54)
[2020-10-26] MEDS: NORCO 7.5/325 MG TAB PO PRN ×2 (13:29→19:51)
[2020-10-26] MEDS: LR 1000 ML IV 1,000 ML IV SCH ×2 (14:38→20:48)
[2020-10-27] MEDS: LR 1000 ML IV 1,000 ML IV SCH (04:05)
[2020-10-27] MEDS: PROTONIX INJ 40 MG VIAL 80 MG in NS 100 ML IV 80 ML IV SCH (04:05)
[2020-10-27] MEDS: BENTYL I.M. INJ 10 MG IM SCH (05:50)
[2020-10-27] MEDS: K-DUR TAB 20 MEQ PO SCH (05:51)
[2020-10-27] MEDS: NORCO 7.5/325 MG TAB PO PRN (05:51)
[2020-10-27 06:07] LABS: BASOPHILS % (AUTO) 0.3 % (0.2-1.0); EOSINOPHILS # (AUTO) 0.1 x10^3/uL (0.0-0.2); EOSINOPHILS % (AUTO) 1.8 % (0.9-2.9); HEMATOCRIT 32.7 % (42.0-54.0); HEMOGLOBIN 10.7 g/dL (13.5-18.0); LYMPHOCYTES # (AUTO) 1.6 X10^3/uL (1.3-2.9); LYMPHOCYTES % (AUTO) 25.4 % (21.0-51.0); MEAN CORPUSCULAR HEMOGLOBIN 28.3 pg (27.0-34.0); MEAN CORPUSCULAR HGB CONC 32.9 g/dL (33.0-35.0); MEAN CORPUSCULAR VOLUME 86.1 fL (80.0-100.0); MEAN PLATELET VOLUME 7.8 fL (7.4-11.0); MONOCYTES # (AUTO) 0.3 x10^3/uL (0.3-0.8); MONOCYTES % (AUTO) 4.6 % (0.0-13.0); NEUTROPHILS # (AUTO) 4.2 x10^3/uL (2.2-4.8); NEUTROPHILS % (AUTO) 67.9 % (42.0-75.0); PLATELET COUNT 199 X10^3/uL (150.0-450.0); RED BLOOD COUNT 3.79 X10^6/uL (4.7-6.0); RED CELL DISTRIBUTION WIDTH 14.9 % (11.6-16.5); WHITE BLOOD COUNT 6.1 X10^3/uL (3.6-10.0)
[2020-10-27 06:19] LABS: ALBUMIN 2.3 g/dL (3.4-5.0); CALCIUM 8.9 mg/dL (8.5-10.1); CARBON DIOXIDE 28.7 mmol/L (21-32); COR CA(FOR HYPOALB) 10.3 mg/dL (8.5-10.1); CREATININE 1.49 mg/dL (0.70-1.30); MAGNESIUM 1.8 mg/dL (1.7-2.9); TOTAL PROTEIN 5.9 g/dL (6.4-8.2)
[2020-10-27] MEDS: COREG TAB 25 MG PO SCH (08:21)
[2020-10-27] MEDS: VSL#3 PO SCH (08:21)
[2020-10-27] MEDS: MAGNESIUM SULFATE 1 GRAM/100 mL PREMIX 1 GM/100 ML BAG IV PRN (08:22)
[2020-10-27 11:22] VITALS: BP 149/67
--- NOTE | 2020-10-27 11:30 | PCM.PROG ---
Progress Note - Progress Note for Day of Date of Exam: 10/24/20 - Subjective Subjective: IS BEING TREATED FOR ACUTE RENAL FAILURE, DEHYDRATION, CAMPYLOBACTER GASTROENTERITIS, AND H-PYLORI. TODAY, HE IS ALERT AND ORIENTED, LYING IN BED ON MORNING ROUNDS. HE CONTINUES WITH COMPLAINTS OF ABDOMINAL PAIN AND NAUSEA. HE DOES REPORT SLIGHT IMPROVEMENT IN SYMPTOMS SINCE ONE DAY PRIOR. ON EXAMINATION, HEART IS REGULAR IN RATE AND RHYTHM. BILATERAL LUNGS ARE NOTED WITH DIMINISHED LUNG SOUNDS THROUGHOUT. ABDOMEN IS ROUND, SOFT, AND NOTED WITH MILD, DIFFUSE TENDERNESS. HYPERACTIVE BOWEL SOUNDS NOTED. THERE IS A RECTAL TUBE IN PLACE. HIS VITALS THIS MORNING ARE: 98.1-77-18-96%-159/74. LABS WERE OBTAINED. ABNORMAL LAB VALUES INCLUDE THE FOLLOWING: WBC 2.3, RBC 3.96, HGB 11.3, HCT 33.5, POTASSIUM 2.8, CHLORIDE 108, BUN 36, CREATININE 2.05, GLUCOSE 131, CALCIUM 8.4, AST 71, BNP 826, TOTAL PROTEIN 6.1, ALBUMIN 2.2. STOOL CULTURE IS POSITIVE FOR [place]. HE IS CURRENTLY RECEIVING NORMAL SALINE WITH 1 AMP BICARB IN EACH LITER AT 75 ML/HR, CIPRO 500MG PO DAILY, PROTONIX DRIP AT 10 ML/HR, PEPCID 20MG IV Q48H, ZOFRAN 4MG IV Q6H PRN, DILAUDID 1MG IV Q6H PRN, BENTYL 10MG IM Q8H, AND LOMOTIL 1TABLET PO BID. HIS HOME MEDICATIONS WERE RESUMED. TODAY, WE WILL ADMINISTER K-DUR 20MG PO X 1 DOSE. OTHERWISE, WE WILL CONTINUE WITH CURRENT PLAN OF CARE TODAY. WE PLAN TO FOLLOW UP WITH AM LABS AND CONTINUE TO MONITOR. TIME SPENT ON CLINICAL ASSESSMENT, REVIEWING LABS AND IMAGING, DECISION MAKING, AND DOCUMENTATION GREATER THAN 45 MINUTES. - Past Medical Family Social History Past Med/Fam/Surg Hx: No changes since H&P Allergies: Allergies Sulfa (Sulfonamide Antibiotics) [SULFA] Allergy (Verified 07/15/20 11:18) vancomycin Allergy (Verified 07/15/20 11:18) - Review of Systems ROS: No change since H&P - Vital Signs and I&O's Vital Signs: Temperature 97.2 F Pulse Rate [Left Radial] 78 Pulse Rate 96 Respiratory Rate 20 Blood Pressure [Left Arm] 149/67 Blood Pressure [Right Arm] 102/58 Blood Pressure 119/59 O2 Sat by Pulse Oximetry 98 Intake and Output: Intake & Output 10/24/20 10/25/20 10/26/20 10/27/20 11:59 11:59 11:59 11:59 Intake Total 6548 / 6548 3258 / 3258 4807 / 4807 3514 / 3514 Output Total 1250 / 1250 1300 / 1300 1300 / 1300 1125 / 1125 Balance 5298 / 5298 1957 / 1957 3507 / 3507 2389 / 2389 - Physical Exam Oriented: Normal Eyes: Normal Ear: Normal Nose: Normal Throat: Normal Respiratory: Generalized, Diminished Cardiovascular: Normal : Normal Auscultation: Bowel Sounds: Increased Palpation: Normal Tenderness: Diffuse, Moderate. negative: Rebound, Guarding, Rigidity Skin: Decreased Turgur Musculoskeletal: Normal Psychiatric: Normal Mood Description: Calm Affect: Normal Speech Pattern: Clear, Appropriate - Laboratory and Diagnostics Result Diagrams: 10/27/20 05:14 10/27/20 05:14 Labs: 10/21/20 17:16 Stool Stool Culture - Final Salmonella Species 10/21/20 17:16 Stool - Final Laboratory WBC 6.1 X10^3/uL (3.6-10.0) 10/27/20 05:14 RBC 3.79 X10^6/uL (4.7-6.0) L 10/27/20 05:14 Hgb 10.7 g/dL (13.5-18.0) L 10/27/20 05:14 Hct 32.7 % (42.0-54.0) L 10/27/20 05:14 MCV 86.1 fL (80.0-100.0) 10/27/20 05:14 MCH 28.3 pg (27.0-34.0) 10/27/20 05:14 MCHC 32.9 g/dL (33.0-35.0) L 10/27/20 05:14 RDW 14.9 % (11.6-16.5) 10/27/20 05:14 Plt Count 199 X10^3/uL (150.0-450.0) 10/27/20 05:14 Plt Count Comment Adequate (ADEQUATE) 10/24/20 05:15 MPV 7.8 fL (7.4-11.0) 10/27/20 05:14 Neut % (Auto) 67.9 % (42.0-75.0) 10/27/20 05:14 Lymph % (Auto) 25.4 % (21.0-51.0) 10/27/20 05:14 [place] % (Auto) 4.6 % (0.0-13.0) 10/27/20 05:14 Eos % (Auto) 1.8 % (0.9-2.9) 10/27/20 05:14 Baso % (Auto) 0.3 % (0.2-1.0) 10/27/20 05:14 Neut # (Auto) 4.2 x10^3/uL (2.2-4.8) 10/27/20 05:14 Lymph # (Auto) 1.6 X10^3/uL (1.3-2.9) 10/27/20 05:14 [place] # (Auto) 0.3 x10^3/uL (0.3-0.8) 10/27/20 05:14 Eos # (Auto) 0.1 x10^3/uL (0.0-0.2) 10/27/20 05:14 Baso # (Auto) 0.0 X10^3/uL (0.0-0.1) 10/27/20 05:14 Absolute Nucleated RBC 0.0 /100WBC 10/27/20 05:14 Total Counted 100 10/24/20 05:15 Neutrophils % (Manual) 53 % (39-76) 10/24/20 05:15 Band Neutrophils % 11 % (0-10) H 10/24/20 05:15 Lymphocytes % (Manual) 20 % (13-43) 10/24/20 05:15 Monocytes % (Manual) 10 % (4-9) H 10/24/20 05:15 Atypical Lymphocytes 5 10/24/20 05:15 Plt Morphology Comment Normal (NORMAL) 10/24/20 05:15 RBC Morphology Normal (NORMAL) 10/24/20 05:15 Sodium 146 mmol/L (136-145) H 10/27/20 05:14 Corrected Sodium 147 mmol/L (136-145) H 10/27/20 05:14 Potassium 3.4 mmol/L (3.5-5.1) L 10/27/20 05:14 Chloride 110 mmol/L (98-107) H 10/27/20 05:14 Carbon Dioxide 28.7 mmol/L (21-32) 10/27/20 05:14 BUN 17 mg/dL (7-18) 10/27/20 05:14 Creatinine 1.49 mg/dL (0.70-1.30) H 10/27/20 05:14 Est GFR (MDRD) Af Amer 60 (>60) 10/27/20 05:14 Est GFR (MDRD) Non-Af 50 (>60) L 10/27/20 05:14 Glucose 141 mg/dL (65-99) H 10/27/20 05:14 Calcium 8.9 mg/dL (8.5-10.1) 10/27/20 05:14 Corrected Calcium 10.3 mg/dL (8.5-10.1) H 10/27/20 05:14 Magnesium 1.8 mg/dL (1.7-2.9) 10/27/20 05:14 Total Bilirubin 0.80 mg/dL (0.2-1.0) 10/27/20 05:14 AST 37 Units/L (15-37) 10/27/20 05:14 ALT 47 Units/L (12-78) 10/27/20 05:14 Alkaline Phosphatase 70 Units/L (46-116) 10/27/20 05:14 B-Natriuretic Peptide 653 pg/mL (0-79) H* 10/27/20 05:14 Total Protein 5.9 g/dL (6.4-8.2) L 10/27/20 05:14 Albumin 2.3 g/dL (3.4-5.0) L 10/27/20 05:14 Globulin 3.6 g/dL (2.5-4.5) 10/27/20 05:14 Albumin/Globulin Ratio 0.6 Ratio (1.1-2.1) L 10/27/20 05:14 Amylase 44 Units/L (25-115) 10/22/20 05:15 Lipase 77 Units/L (73-393) 10/22/20 05:15 Specimen Type Random urine 10/21/20 17:21 Urine Color Dark yellow (YELLOW) 10/21/20 17:21 Urine Appearance Hazy (CLEAR) 10/21/20 17:21 Urine pH 5.0 (5.0 - 8.0) 10/21/20 17:21 Ur Specific [place] 1.025 (1.000-1.030) 10/21/20 17:21 Urine Protein 2+ (NEGATIVE) 10/21/20 17:21 Urine Glucose (UA) 1+ (NEGATIVE) 10/21/20 17:21 Urine Ketones 1+ (NEGATIVE) 10/21/20 17:21 Urine Occult Blood 4+ (NEGATIVE) 10/21/20 17:21 Urine Nitrite Negative (NEGATIVE) 10/21/20 17:21 Urine Bilirubin 1+ (NEGATIVE) 10/21/20 17:21 Urine Urobilinogen Normal (NORMAL) 10/21/20 17:21 Ur Leukocyte Esterase Negative (NEGATIVE) 10/21/20 17:21 Urine RBC 5-10 /HPF (0-3) A 10/21/20 17:21 Urine WBC 0-2 /HPF (0-5) 10/21/20 17:21 Ur Squamous Epith Cells Moderate /HPF (NEGATIVE) 10/21/20 17:21 Urine Bacteria 1+ /HPF (NEGATIVE) 10/21/20 17:21 Coarse Granular Casts Moderate /HPF (NEGATIVE) 10/21/20 17:21 Ur Culture Indicated? No/not indicated 10/21/20 17:21 Stool Description 200g green liquid 10/21/20 17:16 Stool Description 200g green liquid 10/21/20 17:16 Stl Occult Blood (IFOB) Positive (NEGATIVE) A 10/21/20 17:16 Stool for White Cells Positive (NEGATIVE) A 10/21/20 17:16 Stl C. diff Tox B Gene Negative (NEGATIVE) 10/21/20 17:16 Stl C. diff [id number] Presumptive negative (NEGATIVE) 10/21/20 17:16 Stool H. pylori Ag Positive (NEGATIVE) A 10/21/20 17:16 Cryptosporid parvum Ag Negative (NEGATIVE) 10/21/20 17:16 Giardia lamblia Ag Negative (NEGATIVE) 10/21/20 17:16 SARS CoV-2 RNA Rapid ZHENG Negative (NEGATIVE) 10/21/20 18:15 - Plan (1) Acute renal failure Status: Acute Qualifiers: Acute renal failure type: unspecified Qualified Code(s): N17.9 - Acute kidney failure, unspecified Plan: NORMAL SALINE WITH 1 AMP BICARB IN EACH LITER AT 75 ML/HR, CIPRO 500MG PO DAILY, PROTONIX DRIP AT 10 ML/HR, PEPCID 20MG IV Q48H, ZOFRAN 4MG IV Q6H PRN, DILAUDID 1MG IV Q6H PRN, BENTYL 10MG IM Q8H, AND LOMOTIL 1TABLET PO BID. (2) Campylobacter gastroenteritis Status: Acute (3) Salmonella Status: Acute (4) H. pylori infection Status: Acute (5) Acute dehydration Status: Acute
== END 2020-10-27 12:05 | disposition home or self-care (01) | DRG 373 ==
LOC: ER 12:36 → OBS 12:36 → OBSVTOIN 21:41 → OBS 22:00 → MED/SURG 10-22 10:37
PROVIDERS: ADMIT Internal Medicine; ATTEND Internal Medicine
DX: R06.02 Shortness of breath; B96.81 Helicobacter pylori [H. pylori] as the cause of diseases classified elsewhere; E87.8 Other disorders of electrolyte and fluid balance, not elsewhere classified; E86.0 Dehydration; Z20.822 Contact with and (suspected) exposure to COVID-19; R10.9 Unspecified abdominal pain; A04.5 Campylobacter enteritis; N28.9 Disorder of kidney and ureter, unspecified; R00.0 Tachycardia, unspecified